=== PATIENT | female | born 1980 | race Caucasian/White ===

== ENCOUNTER → 2017-06-07 | Outpatient (CLI) | payer OTHER ==
--- NOTE | 2017-06-12 11:08 | RADONC ---
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 ECOG PERFORMANCE STATUS: 0. CONSULTATION NOTE: Ms. 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 HISTORY OF PRESENT ILLNESS: The patient was in her usual state of health until December 2016 when she was found to have an abdominal mass. A CT-guided biopsy was done on 12/20/2016 and showed what appeared to be a retroperitoneal CD10 positive B-cell lymphoma consistent with a follicular lymphoma grade 3. PET CT scan was done on 12/12/2016 which revealed extensive mesenteric hypermetabolic adenopathy measuring at least 23.5 x 17.9 x 6.8 cm. The SUV value was 12.6. The tumor mass was so large, it was compressing the duodenum. There was also noted to be retroperitoneal lymphadenopathy, the largest lymph node measuring 6.3 cm. In addition, there were multiple hypermetabolic lymph nodes in the bilateral cervical, left supraclavicular area, thoracic inlet, and bilateral axillary areas. There were two masses seen in the spleen, as well. There appeared to be bony involvement, and a bone marrow biopsy was done on 12/07/2016 and revealed B-cell follicular lymphoma, as well. The patient was seen by Dr. Mckoy and underwent six cycles of systemic therapy with R-CHOP. Chemotherapy was delivered from 01/02/2017 through 05/06/2017. A restaging PET scan was done and revealed an excellent response. The patient is now being referred to us for consideration of consolidative radiation therapy to her residual retroperitoneal mass. It is then planned that she be followed with maintenance chemotherapy. PAST MEDICAL HISTORY: The patient's past medical history is noncontributory. REVIEW OF SYSTEMS: The patient's review of systems is noncontributory. She denies nausea, vomiting, fevers, chills, night sweats, diplopia, headaches, anxiety or depression, anorexia, weight loss, visual disturbances, chest pain, urinary or bowel difficulties, bone pain, or neurological problems. ALLERGIES: The patient is allergic to PENICILLIN. SOCIAL HISTORY: The patient does not smoke cigarettes. She drinks alcohol socially. FAMILY HISTORY: The patient's family history is positive for a mother with leukemia, two aunts with ovarian and skin cancer, and a grandmother with some type of malignancy. PHYSICAL EXAMINATION: The patient is a well-developed, well-nourished white female in no acute distress. HEENT exam is normocephalic, atraumatic. Extraocular movements are intact. There is no palpable cervical, supraclavicular, infraclavicular, axillary, or inguinal lymphadenopathy present. Lungs are clear to auscultation and percussion. Heart has a regular rate and rhythm. Abdomen is benign with no hepatosplenomegaly, masses, or tenderness. Skeletal examination reveals no tenderness to pressure or percussion of the bony skeleton. Extremities reveal no clubbing, cyanosis, or edema. Neurologic exam is grossly intact, as is the remainder of the physical examination. IMAGING: I have personally reviewed the patient's PET scan, which shows a residual soft tissue density in the mesenteric area with low-level activity. There was no evidence of new or recurrent disease on that PET scan dated 05/15/2017. ASSESSMENT: Clearly, the patient is a candidate for external beam radiation therapy, and I have so informed her. I have discussed with the patient in detail the potential benefits, as well as possible acute and chronic sequelae of external beam radiation therapy. We have discussed logistics of treatment planning, simulation, and subsequent fractionated daily radiation treatments. I have scheduled the patient for the next available simulation slot, and radiation treatments will begin subsequently. Thank you for allowing us to participate the care of this very pleasant woman. If I could be of any further assistance or provide you with any information, please free to contact me any time. cc: MD Caitlyn No MD Howard Meny, MD
== END ==
LOC: M ONCR 10:13
PROVIDERS: ATTEND Radiology Radiation Oncology
DX: C82.20 Follicular lymphoma grade III, unspecified, unspecified site (principal)

== ENCOUNTER → 2017-06-19 | Outpatient (CLI) | payer OTHER | LOC: M RAD 10:24 | PROVIDERS: ATTEND Radiology Radiation Oncology | DX: C83.30 Diffuse large B-cell lymphoma, unspecified site (principal) ==

== ENCOUNTER 2017-07-18 14:39 | Outpatient (RCR) | payer OTHER ==
--- NOTE | 2017-07-25 11:00 | RADONC ---
RADIATION ONCOLOGY TREATMENT SUMMARY DATE: 07/23/2017 CHART NUMBER: [id number] DIAGNOSIS: Follicular B cell lymphoma. STAGE: Stage IV. GRADE: 3. ECOG PERFORMANCE STATUS: 0. TREATMENT SUMMARY: Ms. Pope is a very pleasant 37-year-old white female with the diagnosis of what appears to be a Stage IV, CD10+, follicular lymphoma of the retroperitoneal area who presented to us status post systemic therapy consisting of R-CHOP for consideration of postoperative radiation therapy to her residual abdominal disease. We treated the patient to her retroperitoneal/abdominal disease for a dose of 2520 cGy delivered in 14 fractions of 180 cGy each over 18 elapsed days from 07/02/2017 through 07/20/2017. The patient's retroperitoneal lymphoma was treated on a linear accelerator utilizing an 18 MV photon beam via 3-D conformal technique. Care was taken to maintain all organs within their tolerance limits. Ms. Pope tolerated her treatments quite well and was able to complete therapy as prescribed without interruption. I have scheduled the patient to see me again in 1 month for further followup. She will also continue to be followed by her other physicians as well. cc: MD Caitlyn No MD Howard Meny, MD
== END 2017-08-16 ==
LOC: M ONCR 14:39
PROVIDERS: ATTEND Radiology Radiation Oncology
DX: C82.23 Follicular lymphoma grade III, unspecified, intra-abdominal lymph nodes (principal)

== ENCOUNTER → 2017-08-22 | Outpatient (CLI) | payer OTHER ==
--- NOTE | 2017-08-23 11:07 | RADONC ---
RADIATION ONCOLOGY FOLLOWUP NOTE DATE: 08/22/2017 CHART NUMBER: [id number] DIAGNOSIS: Follicular B cell lymphoma. STAGE: IV. GRADE: 3. ECOG PERFORMANCE STATUS: 0. FOLLOWUP NOTE: Ms. Pope is a very pleasant, 37-year-old white female with the diagnosis of a stage IV, cd10+, follicular lymphoma of the retroperitoneal area who is presenting to us today for routine followup visit 1 month post completion of external beam radiation therapy. The patient presents today reporting that she is doing quite well with no complaints at this time related to her radiation therapy or disease. She has no abdominal discomfort, urinary or bowel difficulties. She has no fevers, chills or night sweats. REVIEW OF SYSTEMS: The patient's review of systems is noncontributory. Denies nausea, vomiting, fevers, chills, night sweats, diplopia, headaches, anxiety or depression, anorexia, weight loss, visual disturbances, chest pain, urinary or bowel difficulties, bone pain, or neurological problems. PHYSICAL EXAMINATION: The patient is a well-developed, well-nourished, 37-year-old female in no acute distress. HEENT exam is normocephalic, atraumatic. Extraocular movements are intact. There is no palpable cervical, supraclavicular, infraclavicular, axillary, or inguinal lymphadenopathy present. Lungs are clear to auscultation and percussion. Heart has a regular rate and rhythm. Abdomen is benign with no hepatosplenomegaly, masses, or tenderness. Skeletal examination reveals no tenderness to pressure or percussion of the bony skeleton. Extremities reveal no clubbing, cyanosis, or edema. Neurologic exam is grossly intact, as is the remainder of the physical examination. ASSESSMENT: The patient is clinically doing well at this point. She is being by followed by her medical oncologist, Dr. Mckoy, every 6-8 weeks. She is scheduled for a PET scan in September and will be seeing Dr. Mckoy in September as well for her Rituxan. In light of the fact that she is being followed and managed so closely by her medical oncologist, I have discharged her from our followup except on a p.r.n. basis. cc: MD Caitlyn No MD Howard Meny, MD
== END ==
LOC: M ONCR 14:12
PROVIDERS: ATTEND Radiology Radiation Oncology
DX: C82.23 Follicular lymphoma grade III, unspecified, intra-abdominal lymph nodes (principal)

== ENCOUNTER → 2019-06-17 | Outpatient (REF) | payer OTHER ==
[2019-06-21 00:06] LABS: HPV HYBRID CAPTURE II Negative (Negative)
== END ==
LOC: M LAB LCGH 12:23
PROVIDERS: ATTEND Obstetrics & Gynecology
DX: R87.810 Cervical high risk human papillomavirus (HPV) DNA test positive (principal)